=== PATIENT | male | born 1945 | race Asian ===

== ENCOUNTER → 2025-01-23 20:10 | Emergency (ER) | payer MEDICARE, OTHER ==
[~2025-01-23 20:10] MED LIST: ACETAMINOPHEN 650 MG/ISO-OSM 65 ML IV ONE; SODIUM CHLORIDE 0.9% 1,000 ML IV ONE
== END | disposition home or self-care (01) ==
LOC: EMS 20:10
DX: R06.03 Acute respiratory distress (principal)
CPT/HCPCS: 51702; 93005; J0131